=== PATIENT | female | born 1970 | race Caucasian/White ===

== ENCOUNTER 2017-02-21 11:14 | Outpatient (CLI) | payer OTHER | END 2017-02-21 11:15 | disposition home or self-care (01) | LOC: LAB 11:14 | DX: Z01.89 Encounter for other specified special examinations (principal) | CPT/HCPCS: 36415 ==

== ENCOUNTER 2017-10-18 19:47 | Emergency (ER) | payer OTHER ==
[2017-10-18 20:14] LABS: MUDS CUTOFF CONCENTRATIONS CUTOFF CONC BELOW:
[2017-10-18 20:15] LABS: BASOPHILS # (AUTO) 0.1 10^3/uL (0.0-0.1); BASOPHILS % (AUTO) 0.7 %; EOSINOPHILS # (AUTO) 0.5 10^3/uL (0.0-0.7); EOSINOPHILS % (AUTO) 6.3 %; HGB - HEMOGLOBIN 10.6 g/dL (12.0-16.0); LYMPHOCYTES # (AUTO) 2.8 10^3/uL (1.5-3.5); LYMPHOCYTES % (AUTO) 38.4 %; MEAN CORPUSCULAR HEMOGLOBIN 24.7 pg (27.0-31.0); MEAN CORPUSCULAR HGB CONC 30.6 g/dL (32.0-36.0); MEAN CORPUSCULAR VOLUME 80.6 fL (81.0-99.0); MEAN PLATELET VOLUME 8.1 fL (7.9-10.8); MONOCYTES # (AUTO) 0.6 10^3/uL (0.0-1.0); MONOCYTES % (AUTO) 7.5 %; NEUTROPHILS # (AUTO) 3.5 10^3/uL (1.5-6.6); NEUTROPHILS % (AUTO) 47.1 %; PLT - PLATELET COUNT 355 10^3/uL (130-450); RED BLOOD COUNT 4.32 10^6/uL (4.20-5.40); RED CELL DISTRIBUTION WIDTH 18.1 % (12.0-15.0); WHITE BLOOD COUNT 7.4 x10^3/uL (4.8-10.8)
[2017-10-18 20:20] LABS: BILIRUBIN,URINE NEGATIVE (NEGATIVE); GLUCOSE, URINE (UA) NEGATIVE (NEGATIVE); KETONES,URINE (UA) NEGATIVE (NEGATIVE); LEUKOCYTE ESTERASE, URINE NEGATIVE (NEGATIVE); NITRITE,URINE NEGATIVE (NEGATIVE); OCCULT BLOOD,URINE NEGATIVE (NEGATIVE); PH,URINE 5.5 PH (5.0-7.5); PROTEIN,URINE NEGATIVE (NEGATIVE); UROBILINOGEN,URINE 0.2 (NORMAL) E.U./dL (NORMAL)
[2017-10-18 20:23] LABS: CLARITY,URINE CLEAR (CLEAR); HCG UR QUAL NEGATIVE
[2017-10-18 20:26] LABS: ALBUMIN 4.2 g/dL (3.2-5.5); ALBUMIN/GLOBULIN RATIO 1.2 (1.0-2.2); ALKALINE PHOSPHATASE 57 IU/L (42-121); ALT ALANINE AMINOTRANSFERASE 12 IU/L (10-60); AST ASPARTATE AMINOTRANSFERASE 21 IU/L (10-42); BILIRUBIN,TOTAL 0.5 mg/dL (0.2-1.0); BUN - BLOOD UREA NITROGEN 17 mg/dL (6-20); CALCIUM 9.4 mg/dL (8.5-10.3); CARBON DIOXIDE - CO2 26 mmol/L (21-32); CHLORIDE 103 mmol/L (101-111); CREATININE 0.7 mg/dL (0.4-1.0); GFR - MDRD 90 (>89); GLUCOSE 92 mg/dL (70-100); LIPASE 40 U/L (22-51); SALICYLATE < 6.0 mg/dL; SODIUM 138 mmol/L (135-145); TOTAL PROTEIN 7.8 g/dL (6.7-8.2)
[2017-10-18 20:27] LABS: ACETAMINOPHEN < 10 ug/mL (10-30)
[2017-10-18 20:31] LABS: AMPHETAMINE SCREEN,URINE NEGATIVE (NEGATIVE); BENZODIAZEPINES SCREEN, URINE NEGATIVE (NEGATIVE); COCAINE SCREEN URINE NEGATIVE (NEGATIVE); METHADONE SCREEN, URINE NEGATIVE (NEGATIVE); METHAMPHETAMINES SCREEN, URINE NEGATIVE (NEGATIVE); OPIATE SCREEN, URINE NEGATIVE (NEGATIVE); OXYCODONE SCREEN, URINE NEGATIVE (NEGATIVE); PROPOXYPHENE SCREEN, URINE NEGATIVE (NEGATIVE); TRICYCLIC ANTIDEPRESSANT,URINE NEGATIVE (NEGATIVE)
[2017-10-18 20:38] LABS: PLATELET ESTIMATE, MANUAL NORMAL (130-450,000) (NORMAL); PLATELET MORPHOLOGY 2+ GIANT PLATELETS (NORMAL)
--- NOTE | 2017-10-19 01:19 | ED Physician Documentation ---
PD HPI MHE - Stated complaint Stated Complaint: MHE - Chief complaint Chief Complaint: MHE - History obtained from History obtained from: Patient, Police - History of Present Illness Primary symptom: Suicidal ideation Timing - onset: Today Contributing factors: Family, Sig other Similar symptoms before: Has not had sx before Recently seen: Not recently seen - Additional information Additional information: Patient is a 47 year old female who was brought in by police for suicidal ideation. According to patient and police records patient has had a hard time over the last 3 months. patient's sister earlier in the year. While the patient's sister was in the hospital she was self medicating by smoking marijuana in the car. The day the sister the patient was driving home and got cited for driving under the influence. patient has court date tomorrow. Patient's grown children live with her, and patient takes care of her 5 year old grandson. Tonight patient got in an argument with her daughter and wanted to drive off to get away from the situation. [place] patient texted her daughter something along the lines of good bye. Patient also texted her ex- saying she "was going to do it " Patient states that she really just wanted to see if the seals were there. patient reports that she did walk out on the bridge and she was thinking about it, and some teenagers where yelling at her to jump. Patient was walking back to her car when police arrived. Patient had made a comment that if the kids weren't there she might have done it so they brought the patient to the emergency department. Upon initial evaluation in the emergency department patient states that she does not actually want to and she definitely would never want to drown. She states that she has to take care of her grandson. Review of Systems Ten Systems: 10 systems reviewed and negative Psychiatric: reports: Depressed. denies: Suicidal, Homicidal, Anxiety PD PAST MEDICAL HISTORY - Past Medical History Respiratory: Asthma - Past Surgical History Past Surgical History: No - Present Medications Home Medications: Ambulatory Orders Medication Instructions Recorded Confirmed clonazePAM [Clonazepam] 0.5 mg PO TID PRN 10/18/17 10/18/17 - Allergies Allergies/Adverse Reactions: Allergies Allergy/AdvReac Type Severity Reaction Status Date / Time erythromycin base AdvReac Unknown Verified 10/18/17 19:51 - Social History Does the pt smoke?: No Smoking Status: Never smoker Does the pt drink ETOH?: No Does the pt have substance abuse?: No - Immunizations Immunizations are current?: Yes PD ED PE NORMAL - Vitals Vital signs reviewed: Yes - General General: Alert and oriented X 3 - HEENT HEENT: Atraumatic, PERRL - Cardiac Cardiac: RRR - Respiratory Respiratory: No respiratory distress - Abdomen Abdomen: Non distended - Derm Derm: Normal color, Warm and dry - Extremities Extremities: No deformity - Neuro Neuro: Alert and oriented X 3, operating room surgical technician 2-12 intact, No motor deficit, Normal speech Eye Opening: Spontaneous Motor: Obeys Commands Verbal: Oriented GCS Score: 15 PD ED PE EXPANDED - Psych Psych: Depressed. No: Intoxicated / AOB, Suicidal, Homicidal, Tearful, Withdrawn, Poor eye contact, Anxious, Agitated, Combative Results - Vitals Vitals: Vital Signs - 24 hr 10/18/17 10/19/17 19:49 02:42 Temperature 36.6 C 36.8 C Heart Rate 63 68 Respiratory 18 15 Rate Blood Pressure 160/79 H 127/58 L O2 Saturation 100 100 Oxygen O2 Source Room air - Labs Labs: Laboratory Tests 10/18/17 10/18/17 10/18/17 20:05 20:05 20:10 WBC 7.4 RBC 4.32 Hgb 10.6 L Hct 34.8 L MCV 80.6 L MCH 24.7 L MCHC 30.6 L RDW 18.1 H Plt Count 355 MPV 8.1 Neut # (Auto) 3.5 Lymph # (Auto) 2.8 [place] # (Auto) 0.6 Eos # (Auto) 0.5 Baso # (Auto) 0.1 Absolute Nucleated RBC 0.00 Nucleated RBC % 0.1 Manual Slide Review Indicated Platelet Estimate NORMAL (130-450,000) Platelet Morphology 2+ GIANT PLATELETS Sodium 138 Potassium 3.3 L Chloride 103 Carbon Dioxide 26 Anion Gap 9.0 BUN 17 Creatinine 0.7 Estimated GFR (MDRD) 90 Glucose 92 Calcium 9.4 Total Bilirubin 0.5 AST 21 ALT 12 Alkaline Phosphatase 57 Total Protein 7.8 Albumin 4.2 Globulin 3.6 Albumin/Globulin Ratio 1.2 Lipase 40 Urine Color Urine Clarity Urine pH Ur Specific [place] Urine Protein Urine Glucose (UA) Urine Ketones Urine Occult Blood Urine Nitrite Urine Bilirubin Urine Urobilinogen Ur Leukocyte Esterase Ur Microscopic Review Urine Culture Comments Urine HCG, Qual Salicylates < 6.0 Urine Opiates Screen NEGATIVE Ur Oxycodone Screen NEGATIVE Urine Methadone Screen NEGATIVE Ur Propoxyphene Screen NEGATIVE Acetaminophen < 10 L Ur Barbiturates Screen NEGATIVE Ur Tricyclics Screen NEGATIVE Ur Phencyclidine Scrn NEGATIVE Ur Amphetamine Screen NEGATIVE U Methamphetamines Scrn NEGATIVE U Benzodiazepines Scrn NEGATIVE Urine Cocaine Screen NEGATIVE U Cannabinoids Screen POSITIVE H Ethyl Alcohol < 5.0 10/18/17 20:10 WBC RBC Hgb Hct MCV MCH MCHC RDW Plt Count MPV Neut # (Auto) Lymph # (Auto) [place] # (Auto) Eos # (Auto) Baso # (Auto) Absolute Nucleated RBC Nucleated RBC % Manual Slide Review Platelet Estimate Platelet Morphology Sodium Potassium Chloride Carbon Dioxide Anion Gap BUN Creatinine Estimated GFR (MDRD) Glucose Calcium Total Bilirubin AST ALT Alkaline Phosphatase Total Protein Albumin Globulin Albumin/Globulin Ratio Lipase Urine Color YELLOW Urine Clarity CLEAR Urine pH 5.5 Ur Specific [place] 1.015 Urine Protein NEGATIVE Urine Glucose (UA) NEGATIVE Urine Ketones NEGATIVE Urine Occult Blood NEGATIVE Urine Nitrite NEGATIVE Urine Bilirubin NEGATIVE Urine Urobilinogen 0.2 (NORMAL) Ur Leukocyte Esterase NEGATIVE Ur Microscopic Review NOT INDICATED Urine Culture Comments NOT INDICATED Urine HCG, Qual NEGATIVE Salicylates Urine Opiates Screen Ur Oxycodone Screen Urine Methadone Screen Ur Propoxyphene Screen Acetaminophen Ur Barbiturates Screen Ur Tricyclics Screen Ur Phencyclidine Scrn Ur Amphetamine Screen U Methamphetamines Scrn U Benzodiazepines Scrn Urine Cocaine Screen U Cannabinoids Screen Ethyl Alcohol PD MEDICAL DECISION MAKING - ED course Complexity details: reviewed old records, reviewed results, re-evaluated patient , considered differential, d/w patient, d/w contract consultant ED course: Patient was seen and examined at bedside. labs were drawn and urine was collected. patient was medically cleared. [facility] was dispatched and came to evaluate the patient. [facility] talked with the patient for over an hour. After that time patient was deemed safe to go home. This was discussed with the patient who felt comfortable going home. patient was able to call her family to come pick her up. Patient was given follow up resources. Patient was stable for discharge with outpatient follow up. - Sepsis Event Vital Signs: Vital Signs - 24 hr 10/18/17 10/19/17 19:49 02:42 Temperature 36.6 C 36.8 C Heart Rate 63 68 Respiratory 18 15 Rate Blood Pressure 160/79 H 127/58 L O2 Saturation 100 100 Oxygen O2 Source Room air Departure - Departure Disposition: 01 Home, Self Care Clinical Impression: Depression Condition: Good Instructions: ED Stress React Follow-Up: BRYNN FAROOQ [Primary Care Provider] - Comments: It is very clear that you are under a lot of stress right now. It is important that you seek help if you are feeling depressed or helpless. If you have these feelings again you should call or return to the emergency department. Discharge Date/Time: 10/19/17 03:00
[2017-10-19 02:42] VITALS: BP 127/58
== END 2017-10-19 03:00 | disposition home or self-care (01) ==
LOC: ED 19:47
DX: F32.9 Major depressive disorder, single episode, unspecified (principal); R45.851 Suicidal ideations
CPT/HCPCS: 36415; 80053; 80306; 80307; 80320; 80329; 81001; 81003; 81025; 83690; 85025; 87086; 99283

== ENCOUNTER 2023-07-01 05:34 | Outpatient (CLI) | payer OTHER | END 2023-07-01 23:59 | disposition EMS.NT | LOC: EMS 05:34 | DX: M25.561 Pain in right knee (principal); R04.0 Epistaxis; V57.5XXA Driver of pick-up truck or van injured in collision with fixed or stationary object in traffic accident, initial encounter; Y93.89 Activity, other specified; Y92.413 State road as the place of occurrence of the external cause ==

== ENCOUNTER 2023-11-21 05:00 | Emergency (ER) | payer OTHER ==
--- NOTE | 2023-11-21 05:03 | ED Physician Documentation ---
PD HPI CHEST PAIN - Stated complaint Stated Complaint: CP/SOA/NAUSA - History obtained from History obtained from: Patient - Additional information Additional information: HPI from patient. Patient says she woke at approximately 2 AM this morning with nausea and vomiting associate with diaphoresis. After vomiting, she felt improvement and just went back to sleep. However, she again awoke approximately 30 minutes later with recurrence of these symptoms. She continued to have episodes of nausea and vomiting, frequently diaphoresis, but she then decided she would drive herself to work anyway. She was driving to work, she had another episode of nausea and vomiting, this time associated with left anterior chest pressure that radiated down the left arm as well as dyspnea and lightheadedness with sensation she might pass out. She pulled over and once the lightheadedness had subsided she drove to this ED. Denies history of similar symptoms. Review of Systems Constitutional: reports: Fatigue Cardiac: reports: Chest pain / pressure. denies: Palpitations Respiratory: reports: Dyspnea. denies: Cough GI: reports: Nausea, Vomiting, Constipation. denies: Abdominal Pain, Diarrhea PD PAST MEDICAL HISTORY - Past Medical History Respiratory: Asthma - Past Surgical History Past Surgical History: No - Present Medications Home Medications: Ambulatory Orders Medication Instructions Recorded Confirmed clonazePAM [Clonazepam] 0.5 mg PO TID PRN 10/18/17 11/21/23 - Allergies Allergies/Adverse Reactions: Allergies Allergy/AdvReac Type Severity Reaction Status Date / Time erythromycin base AdvReac Unknown Verified 11/21/23 07:22 - Social History Does the pt smoke?: No Smoking Status: Never smoker Does the pt drink ETOH?: No Does the pt have substance abuse?: No - Immunizations Immunizations are current?: Yes PD ED PE NORMAL - Vitals Vital signs reviewed: Yes - General General: Alert and oriented X 3, No acute distress, Well developed/nourished - HEENT HEENT: Moist mucous membranes - Cardiac Cardiac: RRR, No murmur, No gallop, No rub - Respiratory Respiratory: No respiratory distress, Clear bilaterally - Abdomen Abdomen: Soft, Non tender - Derm Derm: Normal color, Warm and dry - Extremities Extremities: No edema Results - Vitals Vitals: Vital Signs - 24 hr 11/21/23 11/21/23 11/21/23 05:04 05:09 06:16 Temperature 36.8 C Heart Rate 58 L 63 58 L Respiratory 18 18 14 Rate Blood Pressure 168/96 H 146/65 H O2 Saturation 100 100 98 11/21/23 06:56 Temperature Heart Rate 44 L Respiratory 16 Rate Blood Pressure 147/64 H O2 Saturation 100 Oxygen O2 Source Room air - EKG (time done) No standard instances EKG releavant findings:: EKG personally interpreted by author of this note. Relevant findings are: Rate: Rate (enter#) (58) Rhythm: Sinus bradycardia, Normal P waves [place]: Normal Intervals: Normal ID, QRS normal QRS: Normal Ischemia: Normal ST segments, T wave inversion (V2 inverted T, V3 biphasic T) - Labs Labs: Laboratory Tests 11/21/23 11/21/23 11/21/23 05:14 05:14 05:30 WBC 11.8 H RBC 4.81 Hgb 14.7 Hct 44.8 MCV 93.1 MCH 30.6 MCHC 32.8 RDW 13.2 Plt Count 297 MPV 11.1 H Neut # (Auto) 8.2 H Lymph # (Auto) 2.4 [place] # (Auto) 0.9 Eos # (Auto) 0.2 Baso # (Auto) 0.1 Absolute Nucleated RBC 0.00 Nucleated RBC % 0.0 D-Dimer < 200.0 L Sodium 140 Potassium 4.0 Chloride 105 Carbon Dioxide 21 Anion Gap 14.0 H BUN 24 H Creatinine 0.9 Estimated GFR (MDRD) 65 L Glucose 121 H Calcium 10.6 H Total Bilirubin 0.7 AST 21 ALT 23 Alkaline Phosphatase 81 Troponin I High Sens 6.3 Total Protein 8.5 Albumin 5.3 Globulin 3.2 Albumin/Globulin Ratio 1.7 Lipase 36 - Rads (name of study) chest xray Relevant Findings:: Prelim report reviewed, EMP independent interpretation of test (I reviewed these images and my interpretation is no acute cardiopulmonary abnormality) PD Medical Decision Making - ED course Complexity details: reviewed results, re-evaluated patient, considered differential, d/w patient ED course: Mild leukocytosis (WBC 11.8) on otherwise unremarkable CBC, mildly elevated BUN (24) with normal creatinine (0.9), mild hypercalcemia (10.6) and otherwise unremarkable ER abdominal panel. Negative d-dimer (<200), and normal hs-cTn (6.3). No concerning findings on EKG, CXR. She is given 4mg IV zofran early in stay and reported near-resolution of her symptoms but, as we were discussing test results, she had recurrence of her chest discomfort and nausea/vomiting. She is then given 1 liter NS IV and repeat dose of 4mg zofran IV. When I went to reevaluate her after these interventions, she is again in the bathroom due to nausea. At this point care of patient is turned over to oncoming ED physician (Dr. Naidu) at end of my shift.
[2023-11-21 05:34] LABS: BASOPHILS # (AUTO) 0.1 10^3/uL (0.0-0.1); BASOPHILS % (AUTO) 0.4 %; EOSINOPHILS # (AUTO) 0.2 10^3/uL (0.0-0.7); EOSINOPHILS % (AUTO) 1.4 %; HCT - HEMATOCRIT 44.8 % (37.0-47.0); HGB - HEMOGLOBIN 14.7 g/dL (12.0-16.0); LYMPHOCYTES # (AUTO) 2.4 10^3/uL (1.5-3.5); LYMPHOCYTES % (AUTO) 20.7 %; MEAN CORPUSCULAR HEMOGLOBIN 30.6 pg (27.0-31.0); MEAN CORPUSCULAR HGB CONC 32.8 g/dL (32.0-36.0); MEAN CORPUSCULAR VOLUME 93.1 fL (81.0-99.0); MEAN PLATELET VOLUME 11.1 fL (7.9-10.8); MONOCYTES # (AUTO) 0.9 10^3/uL (0.0-1.0); MONOCYTES % (AUTO) 7.4 %; NEUTROPHILS # (AUTO) 8.2 10^3/uL (1.5-6.6); NEUTROPHILS % (AUTO) 69.7 %; PLT - PLATELET COUNT 297 10^3/uL (130-450); RED BLOOD COUNT 4.81 10^6/uL (4.20-5.40); RED CELL DISTRIBUTION WIDTH 13.2 % (12.0-15.0); WHITE BLOOD COUNT 11.8 x10^3/uL (4.8-10.8)
[2023-11-21] MEDS: ONDANSETRON 4 MG/2 ML VIAL IVP STA ×2 (05:38→06:45)
[2023-11-21 05:52] LABS: TROPONIN I HIGH SENSITIVITY 6.3 ng/L (2.3-14.8)
[2023-11-21 06:15] LABS: ALBUMIN 5.3 g/dL (3.2-5.5); ALBUMIN/GLOBULIN RATIO 1.7 (1.0-2.2); BILIRUBIN,TOTAL 0.7 mg/dL (0.2-1.0); CALCIUM 10.6 mg/dL (8.5-10.3); CREATININE 0.9 mg/dL (0.6-1.3); TOTAL PROTEIN 8.5 g/dL (6.4-8.9)
[2023-11-21] MEDS: SODIUM CHLORIDE 0.9% 1,000 ML IV STA (06:45)
[2023-11-21 07:04] VITALS: O2SAT 100
--- NOTE | 2023-11-21 07:22 | ED Physician Documentation ---
ED Addendum - Addendum Addendum: 11/21/23 07:22 Care signed out to me by Dr. Martinez at 7 AM shift change. Briefly she was awoken early this morning with terrible nausea and then was driving to work and was presyncopal. Then she developed some odd left upper chest pain radiating into the left arm with tingling of the left fingers which really concerned her. She says she was not nauseous or having any pain last night but was inappropriately fatigued when she went to bed. She has been intermittently bradycardic but it is associate with nausea. Her EKG was nonischemic, and a new 1 was obtained at 7:03 AM, independently viewed by me as showing sinus rhythm with a rate of 51, low voltage in the precordial leads, no ST elevation or depression, no T wave abnormalities. She is still nauseous now and that is more bothersome to her than her pain although she is having some left superior chest pain. Plan to repeat second troponin in short order, the first 1 was negative. Otherwise she has a reassuring workup so far with a CBC showing mild nonspecific leukocytosis, D- dimer less than 200 ruling out thromboembolic disease, and relatively unremarkable CMP. 11/21/23 08:54 On reevaluation at this time she is feeling much better after the administration of IV droperidol with regard to her nausea. Second troponin is still normal/negative. The patient awas counseled as to the diagnosis and need for follow-up. I counseled the patient with regard to signs and symptoms that would necessitate an urgent reevaluation in the emergency department. They understand they are welcome to return at any time if worse or if not improving as expected. There is no radiation to the back or pulse deficit in the upper extremities to suggest dissection. Also, her mediastinum is not widened on x-ray. Single view chest x-ray interpreted independently by me and final report review was negative. This document was made in part using voice recognition software. While efforts are made to proofread this documents, sound alike and grammatical errors may occur. Disposition: Discharged home Condition: Stable Diagnosis 1. Vomiting 2. Chest pain
[2023-11-21] MEDS: METOCLOPRAMIDE 10 MG/2 ML VIAL IVP STA (07:29)
--- NOTE | 2023-11-21 08:37 | XRAY Report ---
PROCEDURE: Chest 1V INDICATIONS: chest pain TECHNIQUE: One view of the chest was acquired. COMPARISON: None. FINDINGS: Surgical changes and devices: None. Lungs and pleura: No pleural effusions or pneumothorax. Lungs are clear. Mediastinum: Mediastinal contours appear normal. Heart size is normal. Bones and chest wall: No suspicious bony lesions. Overlying soft tissues appear unremarkable. IMPRESSION: No acute cardiopulmonary process. Reviewed by: Shereen Haji MD, PhD on 11/21/2023 8:36 AM PDT Approved by: Shereen Haji MD, PhD on 11/21/2023 8:36 AM PDT Station ID: [id number]
[2023-11-21 09:14] VITALS: BP 150/77
== END 2023-11-21 09:04 | disposition home or self-care (01) ==
LOC: ED 05:00
DX: R11.10 Vomiting, unspecified (principal); R07.9 Chest pain, unspecified; J45.909 Unspecified asthma, uncomplicated
CPT/HCPCS: 36415; 71045; 80053; 83690; 84484; 85025; 85379; 93005; 96361; 96374; 96375; 96376; 99284; J2765